=== PATIENT | male | born 1950 | race Caucasian/White ===

== ENCOUNTER 2019-09-17 14:34 | Inpatient (IN) | payer MEDICARE, OTHER, SELFPAY ==
[2019-09-17] VITALS (10 sets, daily range): BP systolic 90–136; BP diastolic 52–95; PULSE 72–90; RESP 16–23; TEMP 36.3–36.5; O2SAT 98–100
--- NOTE | 2019-09-17 14:40 | ED.GIBLEED ---
HPI - GI Bleed General Chief complaint: GI Bleed Stated complaint: GI bleed Time Seen by Provider: 09/17/19 14:39 Source: patient, family and EMS Mode of arrival: EMS Limitations: no limitations History of Present Illness HPI Narrative: 68 years old white male with history of hypertension, hyperlipidemia, patient on aspirin presents with rectal bleeding. 4-hour prior to arrival patient patient developed an not good feeling, and later abdominal cramps later felt that his abdomen is bloated, collapsed walking in the hallway at home then had a large dark maroon-colored stool. Currently patient feeling lousy denying any pain. Patient denies similar symptoms. Patient does not smoke and drinks occasionally Related Data Home Medications Medication Instructions Recorded Confirmed aspirin 81 mg tablet,delayed 81 mg PO DAILY 07/24/19 release cyanocobalamin (vitamin B-12) 1,000 mcg PO DAILY 07/24/19 1,000 mcg tablet lisinopril 20 mg tablet 20 mg PO DAILY 07/24/19 loratadine-pseudoephedrine ER 10 1 tablet PO DAILY 07/24/19 mg-240 mg tablet,extended [id number] sildenafil 100 mg tablet 100 mg PO DAILY PRN 07/24/19 Allergies Allergy/AdvReac Type Severity Reaction Status Date / Time No Known Allergies Allergy Verified 09/17/19 14:37 Review of Systems Review of Systems: Narrative: CONSTITUTIONAL: Denies fever, chills, or sweats. EYES: Denies visual changes, redness, or discharge. ENT: Denies rhinorrhea, congestion, sore throat, or otalgia. CARDIOVASCULAR: Denies chest pain, palpitations, or edema. RESPIRATORY: Denies cough or dyspnea. GASTROINTESTINAL: Denies abdominal pain, nausea, vomiting, or diarrhea. GENITOURINARY: Denies dysuria or hematuria. SKIN: Denies rash or itching. MUSCULOSKELETAL: Denies back pain, joint pain, or myalgia. NEUROLOGIC: Denies headache, numbness, or weakness. PSYCHIATRIC: Denies anxiety or depression. [facility] Past Medical History Medical History Hepatitis C antibody test negative Surgical History Surgical History H/O colonoscopy last one was 12-15-2018 Social History Social History Alcohol intake: current Exam Narrative: Exam Narrative: General appearance: Well-developed, well-nourished, ill looking Skin: Pale and diaphoretic Head: Normocephalic, nontraumatic Eyes: Clear conjunctiva ENT: Oropharynx normal, ears normal, nose normal Neck: Supple, nontender Chest and respiratory: Airway patent, no respiratory distress, no accessory muscle use Heart: Regular rate/rhythm Abdomen: Soft, nontender, no organomegaly, quiet bowel sounds Vascular: Normal peripheral pulses, normal capillary refill. 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 The differential diagnosis as below. My plan to get labs, start IV fluids, type and cross for possible blood transfusion, GI consult Differential Diagnosis Differential diagnosis: Likely Upper gastrointestinal hemorrhage, Lower gastroin
--- NOTE | 2019-09-17 14:49 | PC.NURSE ---
Pt lossed color, became clammy, and sweaty. Fluids started. BP 96/70. Second line started. EDP aware
[2019-09-17] MEDS: SODIUM CHLORIDE 0.9% IV 1,000 ML 999 ML (14:51)
[2019-09-17] MEDS: PANTOPRAZOLE SODIUM IV 40 MG VIAL IV PUSH (15:01)
[2019-09-17 15:14] LABS: Basophils Absolute Auto 0.1 K/mm3 (0.0-0.1); Basophils Percent Auto 0.7 % (0.2-1.2); Eosinophils Absolute Auto 0.2 K/mm3 (0-0.3); Eosinophils Percent Auto 1.4 % (0-4.4); Hematocrit 38.8 % (42.0-52.0); Hemoglobin 12.6 g/dL (14.0-18.0); Immature Granulocyte Percent A 0.7 % (0-0.5); Lymphocytes Absolute Auto 2.34 K/mm3 (0.9-3.2); Lymphocytes Percent Auto 16.8 % (18.3-44.2); Mean Corpuscular HGB Conc 32.5 g/dl (32-36); Mean Corpuscular Hemoglobin 29.8 pg (26-34); Mean Corpuscular Volume 91.7 fl (80-100); Mean Platelet Volume 10.8 fl (7.4-10.4); Monocytes Absolute Auto 0.6 K/mm3 (0.1-0.6); Monocytes Percent Auto 4.2 % (2.6-8.5); Neutrophils Absolute Auto 10.6 K/mm3 (1.3-6.7); Neutrophils Percent Auto 76.2 % (45.5-73.1); Platelet Count Result 398 k/mm3 (150-375); Red Blood Count 4.23 M/mm3 (4.6-6.20); Red Cell Distribution Width 13.5 % (11.5-14.5); White Blood Count 13.9 K/mm3 (4.5-10.0)
[2019-09-17 15:23] LABS: Lactic Acid Reflex 1.9 mmol/L (0.7-2.1)
[2019-09-17 15:24] LABS: Alanine Aminotransferase 15 U/L (4-50); Albumin Level 3.4 g/dL (3.5-5.1); Alkaline Phosphatase 60 U/L (38-126); Aspartate Amino Transferase 19 U/L (17-59); Bilirubin,Total 0.2 mg/dL (0.2-1.3); Blood Urea Nitrogen 32 mg/dL (9-20); Calcium 8.2 mg/dL (8.4-10.2); Carbon Dioxide 22 mmol/L (22-30); Chloride 106 mmol/L (98-107); Estimated CRCL calculation 58 ml/min; Estimated Glomerular Filt Rate 60; Glucose 155 mg/dL (75-110); Sodium 135 mmol/L (137-145)
[2019-09-17] MEDS: SODIUM CHLORIDE 0.9% IV 1,000 ML 125 ML IV CONT (17:08)
--- NOTE | 2019-09-17 17:17 | ADMGEN ---
This patient, Micheal Guadarrama, was admitted to Medical Room 247-. Patient/family oriented to hospital policies and general routines including ID bracelet, bed and alarms, visiting hours, pain management, procedures, bathroom and other care routines, personal items, smoking policy, room service/diet, and visiting hours. Valuables list has been completed. Information on how to activate the Rapid Response Team has been discussed. Patient/Family are encouraged to report perceived risks to care and to ask questions if they do not understand what they are told or what they should do.
[2019-09-17 18:57] LABS: IFOB Positive Control Positive; Immunochemical Fecal Occult Bl Positive (N)
--- NOTE | 2019-09-17 22:18 | PM.IMHP ---
H&P: HPI History of Present Illness Chief complaint: gi bleed Narrative: Micheal Guadarrama is a 68 year old male who stated that he had a colonoscopy approximately 2 years ago and that it was normal. The patient stated the 1st time that he had a bowel movement this morning he wiped and there was little bit of blood on the toilet paper roll actually is dark maroon-colored blood and he was little nervous about it but felt fine. The patient said that he felt tired so went back and took a nap. When he woke up he had some abdominal cramping and has some bloody stool at that time. Patient still felt okay after that. So there was a large amount of blood but he was not too worried about it. After the 2nd a large bloody stool which looked maroon color the patient became lightheaded and dizzy in fell on the floor his had help get up. He had no chest pain or palpitations. The called the ambulance. The patient is passing a lot of gas at this time. He has been taking an aspirin. His blood pressure is on the soft side in the emergency room. H&H was noted to be 12.6 and 38.8. His white count was 13.9 which could be reactive. Dr. aguilar has been consulted. Patient was given IV Protonix 1 time and started on IV fluids. Date of service is 09/17/2019 however after reviewing his records I did find a colonoscopy that was dated on 2018 and internal hemorrhoids were found at that time. It looks like he had some polyps as well. They were removed. Review of Systems Review of Systems: All systems reviewed & are unremarkable except as noted in HPI and below Constitutional: Constitutional: Reports as per HPI and Reports no additional constitutional complaints Eyes: Eyes: Reports as per HPI and Reports no additional eye complaints ENT: Reports system reviewed and no additional complaints, except as documented and Reports Normal hearing present Cardiovascular: Cardiovascular: Reports no additional cardiovascular complaints Respiratory: Respiratory: Reports no additional respiratory complaints and Reports no additional respiratory complaints Gastrointestinal: Gastrointestinal: Reports as per HPI and Reports no additional gastrointestinal complaints Musculoskeletal: Musculoskeletal: Reports no additional musculoskeletal complaints Integumentary/Breasts: Skin/Breast: Reports system reviewed and no additional complaints, except as docu and Reports as per HPI Neurologic: Reports system reviewed and no additional complaints, except as documented, Reports as per HPI and Reports Normal hearing present Psychiatric: Psychiatric: Reports no additional psychiatric complaints and Reports as per HPI Endocrine: Endocrine: Reports no additional endocrine complaints Hematologic/Lymphatic: Hematologic/Lymphatic: Reports no additional hematologic/lymphatic complaints Allergic/Immunologic: Allergic/Immunologic: Reports no additional allergic/immunologic complaints [facility] Past Medical History Medical History (Updated 09/17/19 @ 22:30 by Tish Jackson NP) Diverticulitis Diverticulosis History of CVA (cerebrovascular accident) Myocardial infarction Surgical History Surgical History (Updated 09/17/19 @ 22:30 by Tish Jackson NP) H/O colonoscopy last one was 12-15-2018 H/O colonoscopy with polypectomy Family History Family History (Updated 09/17/19 @ 22:27 by Tish Jackson NP) Father Lung cancer Mother Sepsis Sibling Diabetes mellitus Malignant neoplasm of prostate Social History Social History (Updated 09/17/19 @ 22:28 by Tish Jackson NP) Social History: The patient is and lives with his . They have a son and a daughter together. The patient desires to be a full code. He desires to have her as a durable power research attorney for healthcare. He retired from the postal service. The patient started smoking when is a teenager and quit about 10 years ago. No alcohol or illicit drugs. Smoking packs per day: 2
[2019-09-17 23:25] LABS: Hemoglobin 10.6 g/dL (14.0-18.0)
[2019-09-18] VITALS (8 sets, daily range): BP systolic 87–143; BP diastolic 53–83; PULSE 81–92; RESP 13–24; TEMP 36.6–36.9; O2SAT 95–99
[2019-09-18] MEDS: SODIUM CHLORIDE 0.9% IV 1,000 ML 125 ML IV CONT (01:27)
[2019-09-18 05:53] LABS: Alanine Aminotransferase 12 U/L (4-50); Albumin Level 3.1 g/dL (3.5-5.1); Alkaline Phosphatase 52 U/L (38-126); Aspartate Amino Transferase 17 U/L (17-59); Bilirubin,Total 0.2 mg/dL (0.2-1.3); Blood Urea Nitrogen 26 mg/dL (9-20); Calcium 8.2 mg/dL (8.4-10.2); Carbon Dioxide 28 mmol/L (22-30); Chloride 109 mmol/L (98-107); Estimated CRCL calculation 63 ml/min; Estimated Glomerular Filt Rate > 60; Glucose 88 mg/dL (75-110); Potassium 4.5 mmol/L (3.4-5.0); Sodium 138 mmol/L (137-145)
[2019-09-18 05:57] LABS: Basophils Absolute Auto 0.1 K/mm3 (0.0-0.1); Basophils Percent Auto 0.6 % (0.2-1.2); Eosinophils Absolute Auto 0.2 K/mm3 (0-0.3); Hematocrit 32.8 % (42.0-52.0); Hemoglobin 10.8 g/dL (14.0-18.0); Immature Granulocyte Absolute 0.04 K/mm3 (0.00-0.031); Immature Granulocyte Percent A 0.4 % (0-0.5); Lymphocytes Absolute Auto 2.31 K/mm3 (0.9-3.2); Lymphocytes Percent Auto 25.9 % (18.3-44.2); Mean Corpuscular HGB Conc 32.9 g/dl (32-36); Mean Corpuscular Hemoglobin 30.1 pg (26-34); Mean Corpuscular Volume 91.4 fl (80-100); Mean Platelet Volume 10.7 fl (7.4-10.4); Monocytes Absolute Auto 0.6 K/mm3 (0.1-0.6); Monocytes Percent Auto 6.6 % (2.6-8.5); Neutrophils Absolute Auto 5.7 K/mm3 (1.3-6.7); Neutrophils Percent Auto 64.5 % (45.5-73.1); Platelet Count Result 356 k/mm3 (150-375); Red Blood Count 3.59 M/mm3 (4.6-6.20); Red Cell Distribution Width 13.5 % (11.5-14.5); White Blood Count 8.9 K/mm3 (4.5-10.0)
--- NOTE | 2019-09-18 07:15 | WPDGICN ---
Assessment and Plan Assessment and plan (1) Acute GI bleeding: Code(s): K92.2 - Gastrointestinal hemorrhage, unspecified Status: Acute Assessment and Plan: Etiology of GI blood loss uncertain. Patient reports blackish tinge to the stool this morning. Also described as maroonish and bloody. Hemoglobin has declined from initial hemoglobin approximately 12 to hemoglobin approximately 10 this morning. Plan is to continue monitor hemoglobin we will cover patient with proton pump inhibitor. Plan to proceed with EGD today. Colonoscopy may be required subsequently if no findings. We will follow with you. (2) Obesity (BMI 30.0-34.9): Code(s): E66.9 - Obesity, unspecified Status: Acute (3) Carcinoma of prostate: Code(s): C61 - Malignant neoplasm of prostate Status: Acute (4) Essential (primary) hypertension: Code(s): I10 - Essential (primary) hypertension Status: Acute GI Consult Note Consult date/time: 09/18/19 07:15 HPI: Micheal Guadarrama is a 68 year old male seen in evaluation at the request of the emergency room. Patient reports that he has been feeling well. Yesterday began to have lower abdominal discomfort. In the afternoon began to pass maroon bloody stools. He noted some relief after continued bowel movements in after a particularly large bowel movement with blood. He states blood over the night his become somewhat red but also with blackish flex. He has never had blood in his stools previously. He does notice some low abdominal pain that improved after bowel movements. Patient reports colonoscopy 2 years ago that had showed a benign colon polyp as well as benign diverticulosis. Family history is noncontributory. Review of Systems Review of Systems: All systems reviewed & are unremarkable except as noted in HPI and below PMFSH Past Medical History Medical History Diverticulitis Diverticulosis History of CVA (cerebrovascular accident) Myocardial infarction Surgical History Surgical History H/O colonoscopy last one was 12-15-2018 H/O colonoscopy with polypectomy Family History Family History Father Lung cancer Mother Sepsis Sibling Diabetes mellitus Malignant neoplasm of prostate Social History Social History (Updated 09/17/19 @ 22:28 by Tish Jackson NP) Social History: The patient is and lives with his . They have a son and a daughter together. The patient desires to be a full code. 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 The patient started smoking when is a teenager and quit about 10 years ago. No alcohol or illicit drugs. Smoking packs per day: 2 Smoking cigarettes per day: 40.0 Years smoked: 50 Smoking pack-years: 100.00 Smoking status: Former smoker Tobacco type: cigarettes Second hand tobacco smoke exposure: Yes Alcohol intake: current Drinks per week: 2 Substance use: never Gender identity (if verbalized by the patient): Male Spiritual care concerns: No Agree to blood products: Yes Meds Home Medications and Allergies Home Medications Medication Instructions Recorded Confirmed Type aspirin 81 mg tablet,delayed 81 mg PO DAILY 07/24/19 09/17/19 History release cyanocobalamin (vitamin B-12) 1,000 mcg PO DAILY 07/24/19 09/17/19 History 1,000 mcg tablet lisinopril 20 mg tablet 20 mg PO DAILY 07/24/19 09/17/19 History loratadine-pseudoephedrine ER 10 1 tablet PO DAILY 07/24/19 09/17/19 History mg-240 mg tablet,extended [id number] atorvastatin 10 mg tablet 10 mg PO DAILY #90 tablet 09/01/19 09/17/19 Rx amlodipine 10 mg tablet 10 mg PO DAILY #30 tablet 09/07/19 09/17/19 Rx Allergies Allergy/AdvReac Type Severity Reaction Status Date / John
--- NOTE | 2019-09-18 07:22 | PC.NURSE ---
To GI Lab per [facility], IV saline locked.
--- NOTE | 2019-09-18 07:33 | WPDANESEPPF ---
Anes - Initial Pre Proc Eval Procedure: Operation Date: 09/18/19 08:30 Proposed Procedures p Esophagogastroduodenoscopy - Kristian Pulido MD Date/Time: 09/18/19 07:33 Surgeon: Emeterio Brock PA-C Pre Op Diagnosis: gi bleed Patient Data Age: 68 Gender: M Height: 5 ft 7 in Weight: 94.5 kg Last Vital Signs Temp 36.7 C 09/18/19 05:57 Pulse 81 09/18/19 05:57 Resp 16 09/18/19 05:57 BP 130/74 09/18/19 05:57 Pulse Ox 97 09/18/19 05:57 Allergies Allergy/AdvReac Type Severity Reaction Status Date / Time No Known Allergies Allergy Verified 09/17/19 14:37 Home Medications Medication Instructions Recorded Confirmed Type aspirin 81 mg tablet,delayed 81 mg PO DAILY 07/24/19 09/17/19 History release cyanocobalamin (vitamin B-12) 1,000 mcg PO DAILY 07/24/19 09/17/19 History 1,000 mcg tablet lisinopril 20 mg tablet 20 mg PO DAILY 07/24/19 09/17/19 History loratadine-pseudoephedrine ER 10 1 tablet PO DAILY 07/24/19 09/17/19 History mg-240 mg tablet,extended [id number] atorvastatin 10 mg tablet 10 mg PO DAILY #90 tablet 09/01/19 09/17/19 Rx amlodipine 10 mg tablet 10 mg PO DAILY #30 tablet 09/07/19 09/17/19 Rx Laboratory Tests 09/17/19 09/17/19 09/17/19 14:58 14:58 15:04 WBC 13.9 K/mm3 H K/mm3 (4.5-10.0) RBC 4.23 M/mm3 L M/mm3 (4.6-6.20) Hgb 12.6 g/dL L g/dL (14.0-18.0) Hct 38.8 % L % (42.0-52.0) MCV 91.7 fl fl (80-100) MCH 29.8 pg pg (26-34) MCHC 32.5 g/dl g/dl (32-36) RDW 13.5 % % (11.5-14.5) Plt Count 398 k/mm3 H k/mm3 (150-375) MPV 10.8 fl H fl (7.4-10.4) Immature Gran % (Auto) 0.7 % H % (0-0.5) Neut % (Auto) 76.2 % H % (45.5-73.1) Lymph % (Auto) 16.8 % L % (18.3-44.2) [place] % (Auto) 4.2 % % (2.6-8.5) Eos % (Auto) 1.4 % % (0-4.4) Baso % (Auto) 0.7 % % (0.2-1.2) Lymph # (Auto) 2.34 K/mm3 K/mm3 (0.9-3.2) [place] # (Auto) 0.6 K/mm3 K/mm3 (0.1-0.6) Eos # (Auto) 0.2 K/mm3 K/mm3 (0-0.3) Baso # (Auto) 0.1 K/mm3 K/mm3 (0.0-0.1) Abs Immat Gran (auto) 0.10 K/mm3 H K/mm3 (0.00-0.031) Absolute Neuts (auto) 10.6 K/mm3 H K/mm3 (1.3-6.7) Absolute Nucleated RBC 0.0 K/mm3 K/mm3 (0.0-0.012) Nucleated RBC % 0.0 % % (0.0-0.2) Sodium 135 mmol/L L mmol/L (137-145) Potassium 5.0 mmol/L mmol/L (3.4-5.0) Chloride 106 mmol/L mmol/L (98-107) Carbon Dioxide 22 mmol/L mmol/L (22-30) BUN 32 mg/dL H mg/dL (9-20) Creatinine 1.20 mg/dL mg/dL (0.7-1.3) Estim Creat Clear Calc 58 ml/min ml/min Estimated GFR 60 (59 - ) Glucose 155 mg/dL H mg/dL (75-110) Lactic Acid Calcium 8.2 mg/dL L mg/dL (8.4-10.2) Total Bilirubin 0.2 mg/dL mg/dL (0.2-1.3) AST 19 U/L U/L (17-59) ALT 15 U/L U/L (4-50) Alkaline Phosphatase 60 U/L U/L (38-126) Total Protein 6.0 g/dL L g/dL (6.3-8.2) Albumin 3.4 g/dL L g/dL (3.5-5.1) Stl Occult Blood (IFOB) Blood Type A Positive Antibody Screen Negative 09/17/19 09/17/19 09/17/19 15:04 17:37 23:15 WBC RBC Hgb 10.6 g/dL L g/dL (14.0-18.0) Hct 32.0 % L % (42.0-52.0) MCV MCH MCHC RDW Plt Count MPV Immature Gran % (Auto) Neut % (Auto) Lymph % (Auto) [place] % (Auto) Eos % (Auto) Baso % (Auto) Lymph # (Auto) [place] # (Auto) Eos # (Auto) Baso # (Auto) Abs Immat Gran (auto) Absolute Neuts (auto) Absolute Nucleated RBC
[2019-09-18] MEDS: LACTATED RINGERS 1,000 ML 150 ML IV CONT (07:42)
--- NOTE | 2019-09-18 07:45 | SUR.PREOP ---
0730 Up in patient's room, wedding ring left next to his cell phone on the bedside table. Isaias STRAUSS 1030 Called patient's via phone regarding an update. cell number received from his MareLuis Alfredo Hall RN
[2019-09-18] MEDS: BENZOCAINE (*SP) 60 ML SPRAY CAN (HURRICAINE) 1 SPRAY MUCOUS MEM (08:43)
--- NOTE | 2019-09-18 09:38 | PC.NURSE ---
Returned from GI Lab at 0930 via stretcher.
[2019-09-18] MEDS: PANTOPRAZOLE SODIUM IV 40 MG VIAL IV PUSH (09:41)
[2019-09-18 11:14] LABS: Hematocrit 34.2 % (42.0-52.0)
[2019-09-18] MEDS: PEG (High)/E-LYTE SOLN 4,000 ML BTL 4000 ML PO (11:17)
[2019-09-18] MEDS: SODIUM CHLORIDE 0.9% IV 1,000 ML 100 ML IV CONT (12:28)
--- NOTE | 2019-09-18 14:21 | PM.IMPN ---
Progress Note: A&P Assessment and Plan (1) Acute GI bleeding: Code(s): K92.2 - Gastrointestinal hemorrhage, unspecified Status: Acute Assessment and Plan: EGD performed today per Dr. Pulido; unremarkable EGD. Hgb 11.0 this morning; H&H this afternoon, then CBC tomorrow. Patient still reports blood in stools. Type and cross match obtained. Hold ASA for now Patient having prep for colonoscopy per Dr. Pulido tomorrow Monitor for continued signs of blood loss Monitor H&H Transfuse as needed Continue with Protonix. GI following and appreciate recommendations; await colonoscopy and further rec (2) Mixed hyperlipidemia: Code(s): E78.2 - Mixed hyperlipidemia Status: Acute Assessment and Plan: Continue atorvastatin once off NPO status (3) Essential (primary) hypertension: Code(s): I10 - Essential (primary) hypertension Status: Acute Assessment and Plan: BP 110s sys this morning Lisinopril and amlodipine held due to soft BP readings and NPO status Resume home BP once appropriate PRN hydralazine as needed with parameters Subjective Date/time seen: 09/18/19 14:21 Interval history: Patient is a 68 yo M with history of CVA, NM, and diverticulosis with episode of diverticulitis in the past who is here for evaluation of GI bleed. Patient tells me he is doing okay today. He is still noticing significant bright red blood in his stool in the toilet bowl. He is currently doing bowel prep for colonoscopy tomorrow. He denies any other associated symptoms such as dizziness/lightheadness, cp/palpitations. He has no other complaints this afternoon. Denies f/c/s, myalgias/arthralgias, headaches, dizziness, lightheadedness, changes in v/h, cp/palpitations, sob/cough, n/v, abd pain, distension, dysuria, hematuria, cloudy urine, calf pain/swelling. Review of Systems Review of Systems: All systems reviewed & are unremarkable except as noted in HPI and below Exam Narrative: Exam Narrative: Patient lying in semi-hill's position at time of visit Const: General: cooperative, healthy appearing, comfortable, no acute distress, well developed and alert Nutritional Appearance: well nourished Orientation/consciousness: patient oriented x3 HENMT: Head: normocephalic and atraumatic General nose exam: Normal nares present Face and sinus: face symmetric Mouth: Yes moist mucous membranes Throat: posterior oropharynx normal and uvula midline Eyes: General: appearance normal, both eyes and all related structures EOM: EOMs intact bilaterally Neck: Neck: trachea midline and supple Resp: Effort & Inspection: normal respiratory effort Auscultation: rhonchi (scattered, cleared with cough) Cardio: Rate: regular rate Rhythm: regular rhythm Heart sounds: no murmurs GI: Inspection: non-distended and obesity GI Palp: No abdominal tenderness and Yes Soft to palpation Auscultation: normal bowel sounds and normoactive bowel sounds Skin: General skin exam: normal color and no rashes or lesions noted Neuro: General: patient oriented x3, moves all extremities and no focal motor deficits Speech: normal speech Motor exam (neuro): 5/5 motor strength present throughout Extrem: Right lower extremity: no edema Left lower extremity: no edema Other: nttp b/l calves Psych: Mental Status: mental status grossly normal Affect: normal affect Objective Data Vital Signs Vital Signs: Last Vital Signs Temp 98.4 F 09/18/19 07:40 Pulse 81 09/18/19 09:10 Resp 09/18/19 09:10 BP 113/64 09/18/19 09:10 Pulse Ox 96 09/18/19 09:10 Intake/Output Intake/Output: Intake & Output 09/15/19 09/16/19 09/17/19 09/18/19 23:59 23:59 23:59 23:59 Intake Total 1000 2150 Output Total 650 Balance 1000 1500 Meds/Results Medications: Active Medications Generic Name Dose
[2019-09-18 17:31] LABS: Hematocrit 32.5 % (42.0-52.0); Hemoglobin 10.7 g/dL (14.0-18.0)
[2019-09-19] MEDS: SODIUM CHLORIDE 0.9% IV 1,000 ML 75 ML IV CONT (00:18)
[2019-09-19 04:56] LABS: Basophils Absolute Auto 0.1 K/mm3 (0.0-0.1); Basophils Percent Auto 0.9 % (0.2-1.2); Eosinophils Absolute Auto 0.3 K/mm3 (0-0.3); Eosinophils Percent Auto 3.3 % (0-4.4); Hemoglobin 10.5 g/dL (14.0-18.0); Immature Granulocyte Absolute 0.04 K/mm3 (0.00-0.031); Immature Granulocyte Percent A 0.5 % (0-0.5); Lymphocytes Absolute Auto 2.09 K/mm3 (0.9-3.2); Lymphocytes Percent Auto 26.5 % (18.3-44.2); Mean Corpuscular HGB Conc 32.8 g/dl (32-36); Mean Corpuscular Hemoglobin 29.8 pg (26-34); Mean Corpuscular Volume 90.9 fl (80-100); Monocytes Absolute Auto 0.5 K/mm3 (0.1-0.6); Monocytes Percent Auto 6.6 % (2.6-8.5); Neutrophils Absolute Auto 4.9 K/mm3 (1.3-6.7); Neutrophils Percent Auto 62.2 % (45.5-73.1); Platelet Count Result 335 k/mm3 (150-375); Red Blood Count 3.52 M/mm3 (4.6-6.20); Red Cell Distribution Width 13.5 % (11.5-14.5); White Blood Count 7.9 K/mm3 (4.5-10.0)
[2019-09-19 05:53] LABS: Blood Urea Nitrogen 13 mg/dL (9-20); Calcium 8.2 mg/dL (8.4-10.2); Carbon Dioxide 26 mmol/L (22-30); Chloride 106 mmol/L (98-107); Estimated CRCL calculation 69 ml/min; Estimated Glomerular Filt Rate > 60; Glucose 79 mg/dL (75-110); Magnesium 1.9 mg/dL (1.6-2.3); Sodium 136 mmol/L (137-145)
[2019-09-19 06:00] VITALS: BP 126/82; PULSE 80; RESP 16; TEMP 36.3; O2SAT 95
[2019-09-19] MEDS: PANTOPRAZOLE SODIUM IV 40 MG VIAL IV PUSH (08:21)
--- NOTE | 2019-09-19 10:11 | PC.NURSE ---
Patient to GI lab per cali. Report given to CARLOS A Laguerre.
--- NOTE | 2019-09-19 10:26 | WPDANESEFPP ---
Anes - Eval Final PreProcedure Day of Procedure 09/19/19 10:26 Patient weight: obese Heart: regular rate and rhythm Lungs: decreased breath sounds Airway: Mallampati scale class 1 Neurological: alert and oriented Last oral intake: >/= 8 hours ASA classification: III Emergent: no Anesthetic plan: proceed Anesthesia type and monitoring: general GIVS and standard monitoring Informed Consent: The patient's anesthetic plan and its attendant risks and benefits were discussed with the patient/family/POA. Questions were solicited and answers provided to the satisfaction of the patient/family/POA.
[2019-09-19 10:28] VITALS: BP 148/98; PULSE 86; RESP 21; O2SAT 98
[2019-09-19] MEDS: LACTATED RINGERS 1,000 ML 150 ML IV CONT (10:29)
[2019-09-19 10:54] VITALS: BP 94/52; PULSE 84; RESP 24; O2SAT 98
[2019-09-19 11:09] VITALS: BP 101/52; PULSE 85; RESP 23; O2SAT 98
[2019-09-19 11:11] VITALS: BP 122/75; PULSE 83; RESP 24; O2SAT 99
--- NOTE | 2019-09-19 11:35 | PC.NURSE ---
Patient return from GI lab.
--- NOTE | 2019-09-19 12:28 | PM.DS ---
DS: Diagnosis Admitting Diagnosis Admitting Diagnosis: Gastrointestinal hemorrhage, unspecified Discharge Diagnosis (1) Acute GI bleeding: Code(s): K92.2 - Gastrointestinal hemorrhage, unspecified Status: Acute Assessment and Plan: Presented with dark black stools and some bright red stool. Hgb 10.5/Hct 32%. Stable. EGD performed today per Dr. Pulido; unremarkable EGD. Colonoscopy preformed today showing few medium uncomplicated internal hemorrhoids that were nonbleeding and proximal to ascending colon to distal sigmoid colon with multiple medium diverticula present without bleeding. Dr. Pulido recommended the patient be on a High Fiber Diet and can be discharged today. The patients H&H are stable without anymore active bleeding, melena or hematochezia. The patient is stable for discharge. He can restart his Aspirin upon discharge. Told him to follow up with his PCP upon discharge. (2) Mixed hyperlipidemia: Code(s): E78.2 - Mixed hyperlipidemia Status: Acute Assessment and Plan: Continue atorvastatin once off NPO status (3) Essential (primary) hypertension: Code(s): I10 - Essential (primary) hypertension Status: Acute Assessment and Plan: BP 120s sys this morning Will have him check BP at home and continue his home medications. Follow up with PCP about BP readings. DS: Summary Hospital Course Reason for hospitalization: The patient is a 68 year old man with history of diverticulosis, who presented to the ER with dark maroon-colored blood and some bright red blood on his toilet paper when he wiped. He was concerned and came to the ER. Initial vitals showed, temperature 97.7?, blood pressure 112/92, heart rate 80, respiratory rate 23, oxygen saturation 99% on room air. Initial lab shows, leukocytosis 13,900, slight anemia with hemoglobin 12.6 and hematocrit 38.8%, CMP showed slight hyponatremia at 135, creatinine 1.2, BUN 32. Stool occult blood was positive. The patient Was admitted to the hospital and had a consult to GI specialist for acute GI bleed. The patient underwent an EGD on 09/18/2019 which showed no acute abnormalities. Colonoscopy was performed 09/19/2019 which showed diverticulosis of the colon and internal hemorrhoids with no acute signs of any bleeding. His H&H remained stable. The patient was discharged home to continue a high-fiber diet and recommended to continue monitoring his stool output. The patient understands and agrees the plan all questions answered. Status at Discharge Cognitive/behavioral status at discharge: Stable, improved. Time Spent with Patient Time attestation: Total time spent providing and/or coordinating discharge services: Time spent: Greater than 30 minutes Exam Narrative: Exam Narrative: General: 68-year-old man sitting up in bed eating lunch. Appears comfortable. In no acute distress. Skin: No jaundice or cyanosis. Good skin turgor. Neck: Full range of motion. Supple. Respiratory: Lungs are clear to auscultation bilaterally. No bony chest wall tenderness. Cardiovascular: The heart has a regular rate and rhythm without murmur. Lower extremities: No lower extremity edema. Distal pulses are easily palpated. No calf tenderness to palpation. Gastrointestinal: The abdomen is soft, nontender and nondistended with active bowel sounds. Psychiatric: Lucid and oriented. Memory intact. Neurologic: No focal deficits. Speech is clear. No facial drooping. DS: Data Data Completed and Pending Labs on day of discharge: Labs from last 24 hours 09/19/19 09/19/19 09/18/19 04:39 04:39 17:22 WBC 7.9 RBC 3.52 L Hgb 10.5 L 10.7 L Hct 32.0 L 32.5 L MCV 90.9 MCH 29.8 MCHC 32.8 RDW 13.5 Plt Count 335 MPV 10.0 Immature Gran %
== END 2019-09-19 13:29 | disposition home or self-care (01) | DRG 379 ==
LOC: ANHED 16:07 → ANH2MED 16:22
PROVIDERS: Internal Medicine Gastroenterology; Nurse Practitioner; Physician Assistant; Admitting Provider Internal Medicine; Emergency Provider Emergency Medicine; PCP Family Medicine; Visit Provider Physician Assistant
PROC: 0DJ08ZZ Inspection of Upper Intestinal Tract, Via Natural or Artificial Opening Endoscopic (ICD-10-PCS; CPT 43235; principal; 2019-09-18 08:30)
PROC: 0DJD8ZZ Inspection of Lower Intestinal Tract, Via Natural or Artificial Opening Endoscopic (ICD-10-PCS; CPT 45378; principal; 2019-09-19 11:00)
DX: K57.31 Diverticulosis of large intestine without perforation or abscess with bleeding (principal); Z86.010 Personal history of colon polyps; Z86.73 Personal history of transient ischemic attack (TIA), and cerebral infarction without residual deficits; E78.2 Mixed hyperlipidemia; I10 Essential (primary) hypertension; E66.9 Obesity, unspecified; Z68.32 Body mass index [BMI] 32.0-32.9, adult; K57.30 Diverticulosis of large intestine without perforation or abscess without bleeding; Z87.891 Personal history of nicotine dependence; K64.8 Other hemorrhoids
CPT/HCPCS: 36415; 80048; 80053; 82274; 83605; 83735; 85014; 85018; 85025; 86850; 86900; 86901; 96361; 96374; 99285; A9270; C9113; J2704; J7030; J7120

== ENCOUNTER 2023-12-13 13:43 | Outpatient (CLI) | payer MEDICARE, SELFPAY | END 2023-12-13 13:44 | disposition home or self-care (01) | LOC: ANHAUDASC 13:44 | PROVIDERS: PCP Family Medicine; Visit Provider Otolaryngology | DX: H90.3 Sensorineural hearing loss, bilateral (principal) | CPT/HCPCS: 92557; 92567 ==

== ENCOUNTER 2024-06-28 08:12 | Outpatient (CLI) | payer MEDICARE, SELFPAY ==
[2024-06-28 20:44] LABS: LDL Cholesterol Direct 54 mg/dL
[2024-06-28 21:02] LABS: Alanine Aminotransferase 19 U/L (6-50); Albumin Level 4.1 g/dL (3.5-5.1); Alkaline Phosphatase 77 U/L (38-126); Anion Gap 10 mmol/L (4-12); Aspartate Amino Transferase 44 U/L (17-59); Bilirubin,Total 0.7 mg/dL (0.2-1.3); Blood Urea Nitrogen 17 mg/dL (9-20); Calcium 8.7 mg/dL (8.4-10.2); Carbon Dioxide 27 mmol/L (22-30); Chloride 104 mmol/L (98-107); Cholesterol 122 mg/dL (0-200); Estimated Glomerular Filt Rate > 60; Glucose 60 mg/dL (65-110); HDL Direct 46 mg/dL; Potassium 4.6 mmol/L (3.4-5.0); Sodium 141 mmol/L (137-145); Triglycerides 74 mg/dL (<150)
[2024-06-28 21:18] LABS: Hemoglobin A1C 5.9 % (<5.7)
--- OUTSIDE RECORDS SUMMARY | 2024-06-29 21:39 | XMS_ITS | Clinical Summary ---
Author Organization [facility] [place] [address] Address [address] [place] [address] Care Team Providers Care Functional Tester Typewriters Name Role Phone Alea Clark DO Primary Care Provider +1- [phone] Allergies No known active allergies Medications aspirin 81 mg enteric coated tablet Take 81 mg by mouth daily Active amLODIPine (NORVASC) 10 mg tablet Take 10 mg by mouth daily 9 Active atorvastatin (LIPITOR) 10 mg tablet Take 10 mg by mouth daily 9 Active sildenafil (VIAGRA) 100 mg tablet Take 100 mg by mouth as needed for erectile dysfunction Active loratadine (CLARITIN) 10 mg tablet Take 10 mg by mouth daily Active lisinopriL (PRINIVIL,ZESTR [place]) 20 mg tablet Take 1 tablet (20 mg total) by mouth daily Patient needs to be seen by Dr. Fonseca prior to any more refills. 30 tablet 0 Active Active Problems Problem Noted Date Diagnosed Date History of syncope 12/05/2018 Essential hypertension 12/05/2018 Dyslipidemia 12/05/2018 Medical History Medical History Date Comments Personal history of other di seases of the circulatory system History of hypertension - (A dded by TW Conv) Personal history of other en docrine, nutritional and metabolic disease History of high chol esterol - (Added by TW Conv) Hypertension Family History Medical History Relation Name Comments No Known Problems Brother Cancer Father Family history of malignant neoplasm - (Added by TW Conv) infection Mother Relation Name Status Comments Brother Alive Father (Age 75) Mother (Age 90) Social History Tobacco Use Types Packs/Day Years Used Date Smoking Tobacco: Never Smokeless Tobacco: Never Tobacco Cessation:Counseling Given: Yes Alcohol Use Standard Drinks/Week Comments Not Currently 0 (1 standard drink = 0.6 oz pur e alcohol) Personal Safety Answer Date Recorded Getting School Help Needed Not on file 08/21 Sex and Gender Information Value Date Recorded Sex Assigned at Not on file 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 Gender Identity Not on file Sexual Orientation Not on file Obstetrics History Last Filed Vital Signs Vital Sign Reading Time Taken Comments Blood Pressure 118/60 12/05/2018 1:55 PM CDT Pulse 73 12/05/2018 1:55 PM CDT Temperature - - Respiratory Rate - - Oxygen Saturation 98% 12/05/2018 1:55 PM CDT Inhaled Oxygen Concentration - - Weight 94.1 kg (207 lb 8 oz) 12/05/2018 1:55 PM CDT Height 167.6 cm (5' 6 ) 12/05/2018 1:55 PM CDT Body Mass Index 33.49 12/05/2018 1:55 PM CDT Plan of Treatment Health Maintenance Due Date Last Done Comments Colon Cancer Screening-Colonoscopy 1950 Depression Screening 1950 Fall Risk Assessment 1950 Hepatitis C Screening 1950 Hepatitis B Screening 12/22/1969 Zoster Vaccine (1 of 2) 12/22/2001 Abdominal Aortic Aneurysm (A AA) Screen 12/22/2016 Well Visit 65+ 12/22/2016 Covid-19 Vaccine (6 2023-2 5 season) 2024 02/11/2022, 09/14/2021, 04/07/2021, Additional history exists Influenza Vaccine (#1) 2024 , 02/25/2021, 02/17/2020, Additional history exists DTaP/Tdap/Td Vaccine (2 - Td or Tdap) 03/13/2029 03/13/2019 Pneumococcal vaccine 65+ Completed 03/13/2019, 06/08 Insurance MEDICARE COMMERCIAL GENERIC MEDICARE COMMERCIAL GENERIC Care Teams Functional Tester Typewriters Relationship Specialty Start Date End Date Alea Clark DO PCP - General Family Medicine 04/20/22
--- OUTSIDE RECORDS SUMMARY | 2024-06-29 21:39 | XMS_ITS | Referral Summary ---
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
== END 2024-06-28 08:13 | disposition home or self-care (01) ==
LOC: ANHGOSHLAB 08:13
PROVIDERS: PCP Family Medicine; Visit Provider Nurse Practitioner
DX: E78.2 Mixed hyperlipidemia (principal); R73.03 Prediabetes; Z12.11 Encounter for screening for malignant neoplasm of colon
CPT/HCPCS: 36415; 80053; 80061; 83036

== ENCOUNTER 2024-10-09 08:03 | Outpatient (CLI) | payer MEDICARE, SELFPAY ==
--- OUTSIDE RECORDS SUMMARY | 2024-10-09 08:11 | XMS_ITS | Clinical Summary ---
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
--- OUTSIDE RECORDS SUMMARY | 2024-10-09 08:11 | XMS_ITS | Referral Summary ---
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
[2024-10-09 12:52] LABS: Alanine Aminotransferase 20 U/L (6-50); Albumin Level 4.3 g/dL (3.5-5.1); Alkaline Phosphatase 75 U/L (38-126); Anion Gap 9 mmol/L (4-12); Aspartate Amino Transferase 93 U/L (17-59); Bilirubin,Total 0.7 mg/dL (0.2-1.3); Blood Urea Nitrogen 18 mg/dL (9-20); Calcium 8.9 mg/dL (8.4-10.2); Carbon Dioxide 28 mmol/L (22-30); Chloride 102 mmol/L (98-107); Cholesterol 135 mg/dL (0-200); Estimated Glomerular Filt Rate > 60; Glucose 78 mg/dL (65-110); HDL Direct 50 mg/dL; Potassium 4.3 mmol/L (3.4-5.0); Sodium 139 mmol/L (137-145); Triglycerides 87 mg/dL (<150)
[2024-10-09 13:02] LABS: LDL Cholesterol Direct 51 mg/dL
[2024-10-09 14:08] LABS: Hemoglobin A1C 5.7 % (<5.7)
== END 2024-10-09 08:04 | disposition home or self-care (01) ==
LOC: ANHGOSHLAB 08:04
PROVIDERS: PCP Family Medicine; Visit Provider Nurse Practitioner
DX: E78.2 Mixed hyperlipidemia (principal); R73.03 Prediabetes
CPT/HCPCS: 36415; 80053; 80061; 83036

== ENCOUNTER 2024-11-10 10:52 | Emergency (ER) | payer MEDICARE, SELFPAY ==
--- NOTE | 2024-11-10 10:56 | ED_ITS ---
HPI - Ear Problem General Chief complaint: Ear Stated complaint: SINUS/EARACHE Time Seen by Provider: 11/10/24 10:55 Source: patient Mode of arrival: ambulatory Limitations: no limitations History of Present Illness HPI Narrative: Patient is a 73-year-old male presents with right ear and right maxillary sinus pain started 4 days ago. Was outside at a graduation and doing yard work that weekend. Has a history of allergies takes Claritin daily. Called a telehealth on Wednesday and was prescribed some ear drops neomycin polymyxin. He has also been taking Sudafed from behind the counter which gives him relief but it also gives him a headache. Denies cough sore throat, chest congestion, fever, or chills. Reported he took 3 doses of doxy from a previous infection. Denies any ear drainage. Reports increased pain at night and interferes with sleep. MD Complaint: ear pain Related Data Home Medications ?Medication ?Instructions ?Recorded ?Confirmed ?Last Taken ?Type cetirizine 10 mg capsule (Zyrtec) 10 mg PO DAILY PRN allergy symptoms 10/22/22 11/10/24 Unknown History finasteride 5 mg tablet 5 mg PO DAILY 02/18/23 11/10/24 Unknown History Allergies Allergy/AdvReac Type Severity Reaction Status Date / Time No Known Allergies Allergy Verified 11/10/24 11:02 Review of Systems Review of Systems: All systems reviewed & are unremarkable except as noted in HPI and below Constitutional: Constitutional: Denies body ache(s), Denies chills, Denies fever(s), Denies headache(s) and Denies malaise Eyes: Eyes: Denies blurry vision, Denies eye discharge and Denies irritation ENT: Reports otalgia, Denies headache(s), Denies nasal congestion, Denies nasal discharge, Reports sinus pain, Reports sinus pressure and Denies sore throat Cardiovascular: Cardiovascular: Denies chest pain, Denies edema, Denies palpitations and Denies dyspnea on exertion Respiratory: Respiratory: Denies cough and Denies dyspnea on exertion Gastrointestinal: Gastrointestinal: Denies abdominal pain, Denies diarrhea, Denies nausea and Denies vomiting Musculoskeletal: Musculoskeletal: Denies back pain, Denies arthralgias and Denies muscle weakness Integumentary/Breasts: Skin/Breast: Denies pruritus and Denies rash Neurologic: Denies headache(s) Psychiatric: Psychiatric: Reports no additional psychiatric complaints Endocrine: Endocrine: Denies palpitations PMFSH Past Medical History Medical History Hepatitis C antibody test negative (10/05/17) Diverticulosis (~2019) Diverticulitis Surgical History Surgical History H/O colonoscopy with polypectomy H/O colonoscopy last one was 12-15-2018 Family History Family History Father Lung cancer Mother Sepsis Sibling Diabetes mellitus Malignant neoplasm of prostate Social History Social History Social History: The patient is and lives with his . They have a son and a daughter together. The patient desires to be a full code. He desires to have her as a durable power civil litigation attorney for healthcare. He retired from the [employer] service. The patient started smoking when is a teenager and quit about 10 years ago. No alcohol or illicit drugs. Smoking packs per day: 2 Smoking cigarettes per day: 40.0 Years smoked: 50 Smoking pack-years: 100.00 Smoking status: Former smoker Tobacco type: cigarettes Second hand tobacco smoke exposure: Yes Alcohol intake: current Drinks per week: 2 Substance use: never Lack of Transportation: No Lack of Food: Never True Current Housing: I Have Housing Concerned About Future Housing: No Difficulty Paying Gas/Electric Bills: No Difficulty Paying for Meds: No Currently Unemployed: No Education: High School Diploma/GED Difficulty w/ Childcare or Family Care: No Gender identity (if verbalized by the patient): Male Spiritual care concerns: No Agree to blood products: Yes Comments At time of signature, agree with nursing past medical, surgical, social and family history. There is no relevant family history pertinent to the presenting complaint? Exam Const: General: cooperative, healthy appearing, no acute distress and well nourished Nutritional Appearance: well nourished Orientation/consciousness: patient oriented x3 Limitations: no limitations HENMT: Head: normal to inspection, normocephalic and atraumatic Ears: hearing grossly normal bilaterally, EAC's normal, no periauricular adenopathy and TM abnormal Face/Nose/Sinus: Normal external nose present, Normal nares present, Normal nasal mucous membranes and turbinates present, No nasal discharge present, normal facial exam and Facial tenderness on exam of face and sinuses Face and sinus: normal facial exam Mouth: Yes Normal oral and palatal mucosa present, Yes lip normal, Yes tongue normal and Yes moist mucous membranes Throat: posterior oropharynx normal, tonsils normal and uvula midline Eyes: General: appearance normal, both eyes and all related structures Alignment and Position: alignment normal and position normal Eyelids: eyelids normal Pupils: Equal, round and reactive pupils present EOM: EOMs intact bilaterally Neck: Neck: normal visual inspection, full ROM, no lymphadenopathy and supple Chest: Chest palpation & inspection: normal inspection of the chest Resp: Effort & Inspection: normal respiratory effort and able to speak in complete sentences Auscultation: clear to auscultation bilaterally, no crackles, no rales, no rhonchi and no wheezes Cardio: Rate: regular rate Rhythm: regular rhythm Heart sounds: S1 normal heart sound present and S2 normal heart sound present Skin: General skin exam: normal color and no rashes or lesions noted Neuro: General: patient oriented x3 and moves all extremities Cranial nerves: Yes Equal, round and reactive pupils present Cognition (Neuro): normal cognition Speech: normal speech Gait exam (Neuro): Normal gait present Extrem: General: normal to inspection and full ROM Psych: Appearance: grossly normal and well kempt Mental Status: mental s tatus grossly normal Speech and movement: Normal speech and movement present Course Course Emergency Course: Patient is aware of diagnosis, understands and agrees to treatment plan.? Anticipatory guidance given.? Patient agrees to follow-up as directed and is aware of reasons to seek care at the emergency department.? Portions of this record may have been created with voice recognition software? Level of Care: Express Care Visit Vital Signs Vital signs: Reviewed Medical Decision Making MDM Narrative Medical decision making narrative: Discussed not taking the Sudafed [id number] due to his history of high blood pressure and the risks associated with it. Recommend taking Coricidin cold and cough to help with decongestant; safer on his heart. Discussed continuing Claritin and adding on Flonase to help with the inflammation and fluid accumulation. Recommended taking Tylenol with pain per instructions on the bottle. Pt well hydrated appearing, in no respiratory distress, hemodynamically stable. Recommend supportive care. The patient is stable at time of discharge the clinical impression was discussed and the patient was given the opportunity to ask questions, which were addressed as completely as possible given the information available at present. Anticipatory guidance and return to care precautions were discussed and the importance of primary care follow-up was stressed and encouraged. The patient voiced understanding of the plan, indications to return, and the need for follow-up. Exam findings show no acute concerns or changes Patient is appropriate for outpatient treatment and follow-up. Differential diagnosis considered: Sorenson virus, strep pharyngitis, allergic rhinitis, upper respiratory tract infection, sinusitis, rhinosinusitis, nasopharyngitis. viral pharyngitis, otitis media, otitis externa, otitis effusion, foreign body, cerumen impaction, viral syndrome, and influenza.? Medical Records Medical records reviewed: Yes I reviewed the external patient's medical records. Discharge Plan Discharge Clinical Impression: Sinusitis Qualifiers: Sinusitis location: maxillary Chronicity: acute Recurrence: non-recurrent Qualified Code(s): J01.00 - Acute maxillary sinusitis, unspecified Patient Disposition: Home Condition: Stable Instructions: Sinusitis (ED) Additional Instructions: Symptomatic treatment of a sinus infection aims to relieve symptoms. These treatments do not shorten the duration of illness. Nonprescription pain medications, such as acetaminophen (eg, Tylenol) or ibuprofen (eg, Motrin, Advil), are recommended for pain. Flushing the nose and sinuses with a saline solution several times per day has been proven to decrease pain associated with congestion and shorten the duration of symptoms. Nasal steroids (such as Flonase, 2 sprays in each nostril daily) can help to reduce swelling inside the nose, usually within two to three days. These drugs have few side effects and relieve symptoms in most people. Oral decongestants (pseudoephedrine and phenylephrine) may be helpful if you have associated symptoms of ear pain or fullness. Nasal decongestant sprays, including oxymetazoline (Afrin) and phenylephrine (Celestino-Synephrine), can be used to temporarily treat congestion. However, these sprays should not be used for more than two to three days due to the risk of rebound congestion (when the nose becomes congested constantly unless the me dication is used repeatedly), possible addiction, and long-term consequences of frequent use, including persistent nasal dryness and crusting, which is very difficult to treat once it has developed. Medications to thin secretions (such as guaifenesin) may help to clear mucus. Please follow-up with your primary care doctor in the next 1-2 days. If you cannot follow-up with your primary care doctor please go to the ED for any urgent issues. If you have any worsening of symptoms or any other concerns please go to the ED immediately. Your blood pressure was elevated above 120/80 today at Urgent Care. This puts you above the threshold for follow up visit with a primary care provider. High blood pressure does not usually cause any symptoms, however it may lead to kidney failure, stroke, heart disease just to name a few if untreated . Many people are anxious when seeing a provider or nurse. As a result, you are not diagnosed with hypertension at this time unless your blood pressure is pe rsistently high at two office visits at least one week apart. Some things that can help lower blood pressure are lifestyle modifications, such as light exercise, decreased salt in diet, and weight loss. It is important to follow up with a PCP about this within 1 week. Patient Language: Algerian Prescriptions: New fluticasone propionate [Flonase Allergy Relief] 50 mcg/actuation spray,suspension 1 spray intranasal DAILY Qty: 16 0RF Rx Instructions: administer into each nostril amoxicillin-pot clavulanate 875-125 mg tablet 1 tablet PO Q12H 10 Days Qty: 20 0RF No Action Zyrtec 10 mg capsule 10 mg PO DAILY PRN (Reason: allergy symptoms) finasteride 5 mg tablet 5 mg PO DAILY lisinopril 20 mg tablet See Rx Instructions .ROUTE .COMPLEX Qty: 90 1RF Dose Instruction: TAKE 1 TABLET BY MOUTH EVERY DAY Rx Instructions: TAKE 1 TABLET BY MOUTH EVERY DAY amlodipine 10 mg tablet See Rx Instructions .ROUTE .COMPLEX Qty: 90 1RF Dose Instruction: TAKE 1 TABLET BY MOUTH EVERY DAY Rx Instructions: TAKE 1 TABLET BY MOUTH EVERY DAY atorvastatin 10 mg tablet See Rx Instructions .ROUTE .COMPLEX Qty: 90 1RF Dose Instruction: TAKE 1 TABLET BY MOUTH EVERY DAY Rx Instructions: TAKE 1 TABLET BY MOUTH EVERY DAY famotidine 20 mg tablet See Rx Instructions .ROUTE .COMPLEX Qty: 90 1RF Dose Instruction: TAKE 1 TABLET BY MOUTH DAILY Rx Instructions: TAKE 1 TABLET BY MOUTH DAILY Follow-up/Referrals: Alea Clark DO [Primary Care Provider] - 3 Days Time of Disposition: 11:47
[2024-11-10 11:04] VITALS: BP 162/79; PULSE 97; RESP 16; TEMP 36.8; O2SAT 98
== END 2024-11-10 11:52 | disposition home or self-care (01) ==
PROVIDERS: Emergency Provider Nurse Practitioner Family; PCP Family Medicine
DX: J01.00 Acute maxillary sinusitis, unspecified (principal); Z87.891 Personal history of nicotine dependence
CPT/HCPCS: 99213; G0463

== ENCOUNTER 2025-04-16 08:04 | Outpatient (CLI) | payer MEDICARE, SELFPAY ==
--- OUTSIDE RECORDS SUMMARY | 2025-04-16 08:08 | XMS_ITS | Clinical Summary ---
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 Gender Identity Not on file Sexual [...] 1:55 PM CDT Height 167.6 cm (5' 6) 12/05/2018 1:55 PM CDT Body Mass Index 33.49 12/05/2018 1:55 PM CDT Plan of Treatment Health Maintenance Due Date Last Done Comments Colon Cancer Screening-Colonoscopy 1950 Depression Screening 1950 Fall Risk Assessment 1950 Hepatitis C Screening 1950 Hepatitis B Screening 12/22/1969 Zoster Vaccine (1 of 2) 12/22/2001 Abdominal Aortic Aneurysm (A AA) Screen 12/22/2016 Well Visit 65+ 12/22/2016 Covid-19 Vaccine (6 2024-2 6 season) 2025 02/11/2022, 09/14/2021, 04/07/2021, Additional history exists Influenza Vaccine (#1) 2025 , 02/25/2021, 02/17/2020, Additional history exists DTaP/Tdap/Td Vaccine (2 - Td or Tdap) 03/13/2029 03/13/2019 Pneumococcal vaccine 65+ Completed 03/13/2019, 06/08 Insurance MEDICARE COMMERCIAL GENERIC MEDICARE COMMERCIAL GENERIC Care Teams Labview Programmer Relationship Specialty Start Date End Date Alea Clark DO PCP - General Family Medicine 04/20/22
[2025-04-16 12:54] LABS: Hematocrit 49.6 % (42.0-52.0); Hemoglobin 16.2 g/dL (14.0-18.0); Mean Corpuscular HGB Conc 32.7 g/dl (32-36); Mean Corpuscular Hemoglobin 30.2 pg (26-34); Mean Corpuscular Volume 92.5 fl (80-100); Platelet Count Result 375 k/mm3 (150-375); Red Blood Count 5.36 M/mm3 (4.6-6.20); White Blood Count 7.5 K/mm3 (4.5-10.0)
[2025-04-16 13:16] LABS: Alanine Aminotransferase 23 U/L (6-50); Albumin Level 4.4 g/dL (3.5-5.1); Alkaline Phosphatase 74 U/L (38-126); Anion Gap 7 mmol/L (4-12); Aspartate Amino Transferase 40 U/L (17-59); Bilirubin,Total 0.5 mg/dL (0.2-1.3); Blood Urea Nitrogen 16 mg/dL (9-20); Calcium 9.0 mg/dL (8.4-10.2); Carbon Dioxide 28 mmol/L (22-30); Chloride 102 mmol/L (98-107); Cholesterol 133 mg/dL (0-200); Estimated Glomerular Filt Rate > 60; Glucose 76 mg/dL (65-110); HDL Direct 51 mg/dL; Potassium 4.0 mmol/L (3.4-5.0); Sodium 137 mmol/L (137-145); Total Protein 7.6 g/dL (6.3-8.2); Triglycerides 85 mg/dL (<150)
[2025-04-16 13:49] LABS: Hemoglobin A1C 5.8 % (<5.7)
[2025-04-16 13:54] LABS: Prostate Specific Antigen 3.2 ng/mL (< OR = 4.0); Thyroid Stimulating Hormone 2.730 uIU/mL (0.465-4.680)
== END 2025-04-16 08:05 | disposition home or self-care (01) ==
LOC: ANHGOSHLAB 08:05
PROVIDERS: PCP Family Medicine; Visit Provider Nurse Practitioner
DX: E03.9 Hypothyroidism, unspecified (principal); Z12.5 Encounter for screening for malignant neoplasm of prostate; I10 Essential (primary) hypertension; R73.03 Prediabetes; E78.2 Mixed hyperlipidemia
CPT/HCPCS: 36415; 80053; 80061; 83036; 84153; 84443; 85027; G0103

== ENCOUNTER 2025-05-12 09:03 | Emergency (ER) | payer MEDICARE, SELFPAY ==
--- NOTE | 2025-05-12 09:04 | ED.EYEPROB ---
HPI - Eye Problem General Chief complaint: Eye Problems Stated complaint: L Eye Pain Time Seen by Provider: 05/12/25 09:04 Source: patient Mode of arrival: ambulatory Limitations: no limitations History of Present Illness HPI Narrative: Patient is a 74-year-old male that presents with left eye redness, irritation. Patient think he poked eye in his sleep and now has eye redness. denies any vision changes, drainage, pain. Related Data Home Medications ?Medication ?Instructions ?Recorded ?Confirmed ?Last Taken ?Type cetirizine 10 mg capsule (Zyrtec) 10 mg PO DAILY PRN allergy symptoms 10/22/22 04/20/25 Unknown History finasteride 5 mg tablet 5 mg PO DAILY 02/18/23 04/20/25 Unknown History sildenafil 100 mg tablet mg PO 04/20/25 04/20/25 Unknown History Allergies Allergy/AdvReac Type Severity Reaction Status Date / Time No Known Allergies Allergy Verified 05/12/25 09:12 Review of Systems Review of Systems: All systems reviewed & are unremarkable except as noted in HPI and below Constitutional: Constitutional: Denies body ache(s), Denies fever(s), Denies headache(s), Denies malaise and Denies weakness Eyes: Eyes: Denies blurry vision, Denies eye discharge, Reports irritation, Denies itchy eyes, Denies loss of vision and Denies eye pain ENT: Denies otalgia, Denies headache(s), Denies nasal discharge, Denies sinus pain and Denies sore throat Cardiovascular: Cardiovascular: Denies chest pain, Denies irregular heart rhythm and Denies dyspnea Respiratory: Respiratory: Denies dyspnea Gastrointestinal: Gastrointestinal: Denies abdominal pain, Denies diarrhea, Denies nausea and Denies vomiting Musculoskeletal: Musculoskeletal: Denies back pain, Denies myalgias and Denies arthralgias Integumentary/Breasts: Skin/Breast: Denies pruritus and Denies rash Neurologic: Denies headache(s), Denies loss of vision and Denies weakness Psychiatric: Psychiatric: Reports no additional psychiatric complaints Allergic/Immunologic: Allergic/Immunologic: Reports itchy eyes PMFSH Past Medical History Medical History Hepatitis C antibody test negative (10/05/17) Diverticulosis (~2019) Diverticulitis Surgical History Surgical History H/O colonoscopy with polypectomy H/O colonoscopy last one was 12-15-2018 Family History Family History Father Lung cancer Mother Sepsis Sibling Diabetes mellitus Malignant neoplasm of prostate Social History Social History Social History: The patient is and lives with his . They have a son and a daughter together. The patient desires to be a full code. He desires to have her as a durable power divorce attorney for healthcare. He retired from the postal service. The patient started smoking when is a teenager and quit about 10 years ago. No alcohol or illicit drugs. Smoking packs per day: 2 Smoking cigarettes per day: 40.0 Years smoked: 50 Smoking pack-years: 100.00 Smoking status: Former smoker Tobacco type: cigarettes Second hand tobacco smoke exposure: Yes Alcohol intake: current Drinks per week: 2 Substance use: never Lack of Transportation: No Lack of Food: Never True Current Housing: I Have Housing Concerned About Future Housing: No Difficulty Paying Gas/Electric Bills: No Difficulty Paying for Meds: No Currently Unemployed: No Education: High School Diploma/GED Difficulty w/ Childcare or Family Care: No Gender identity (if verbalized by the patient): Male Spiritual care concerns: No Agree to blood products: Yes Comments At time of signature, agree with nursing past medical, surgical, social and family history. There is no relevant family history pertinent to the presenting complaint. Exam Const: General: cooperative, healthy appearing, comfortable, no acute distress and well nourished Nutritional Appearance: well nourished Orientation/consciousness: patient oriented x3 Limitations: no limitations HENMT: Head: normal to inspection, normocephalic and atraumatic Ears: external ears normal Face/Nose/Sinus: Normal external nose present, normal facial exam and face symmetric Face and sinus: normal facial exam and face symmetric Mouth: Yes lip normal Eyes: General: appearance normal, both eyes and all related structures Visual Ernandez: normal visual ernandez by confrontation Alignment and Position: alignment normal and position normal Periorbital: periorbital findings normal Eyelids: eyelids normal Conjunctivae: conjunctivae normal Sclera: scleral abnormality left hemorrhage; without scleral tenderness Pupils: Equal, round and reactive pupils present EOM: EOMs intact bilaterally Direct Ophthalmoscopy: no photophobia Other: No hyphema, no foreign body under the lids. Neck: Neck: normal visual inspection, full ROM, no lymphadenopathy and no meningeal signs Chest: Chest palpation & inspection: normal inspection of the chest Resp: Effort & Inspection: normal respiratory effort and able to speak in complete sentences Auscultation: clear to auscultation bilaterally Cardio: Rate: regular rate Rhythm: regular rhythm Heart sounds: S1 normal heart sound present and S2 normal heart sound present GI: Inspection: normal to inspection Skin: General skin exam: normal color and no rashes or lesions noted Neuro: General: patient oriented x3, moves all extremities and no meningeal signs Cranial nerves: Yes Equal, round and reactive pupils present Speech: normal speech Gait exam (Neuro): Normal gait present Extrem: General: normal to inspection, full ROM and no edema Psych: Appearance: grossly normal and well kempt Mental Status: mental status grossly normal Speech and movement: Normal speech and movement present Affect: normal affect Attitude: cooperative Thought process: Normal thought process present Course Course Emergency Course: Patient is aware of diagnosis, understands and agrees to treatment plan. Anticipatory guidance given. Patient agrees to follow-up as directed and is aware of reasons to seek care at the emergency department. Portions of this record may have been created with voice recognition software Level of Care: Express Care Visit Vital Signs Vital signs: Vital Signs Temperature 36.5 C 05/12/25 09:12 Pulse Rate 80 05/12/25 09:12 Respiratory Rate 16 05/12/25 09:12 Blood Pressure 121/81 05/12/25 09:12 Pulse Oximetry 98 05/12/25 09:12 Temperature 36.5 C 05/12/25 09:12 Pulse Rate 80 05/12/25 09:12 Respiratory Rate 16 05/12/25 09:12 Blood Pressure 121/81 05/12/25 09:12 Pulse Oximetry 98 05/12/25 09:12 [facility] Narrative Medical decision making narrative: patient has subconjunctival hemorrhage from poking with self with finger. Will give antibiotic drops as a precaution. Instructed patient to go to [place] or [facility] ED if he starts having vision changes. Pt well hydrated appearing, in no respiratory distress, hemodynamically stable. Recommend supportive care. The patient is stable at time of discharge the clinical impression was discussed and the patient was given the opportunity to ask questions, which were addressed as completely as possible given the information available at present. Anticipatory guidance and return to care precautions were discussed and the importance of primary care follow-up was stressed and encouraged. The patient voiced understanding of the plan, indications to return, and the need for follow-up. Exam findings show no acute concerns or changes Patient is appropriate for outpatient treatment and follow-up. Differential Diagnosis Differential Diagnosis: Differential diagnostic considerations for eye problems include corneal abrasion, conjunctivitis, acute iritis, hyphemia, periorbital cellulitis, subconjunctival hemorrhage, glaucoma, corneal ulcer, ruptured globe, foreign body in eye. Medical Records I have reviewed the following patient records and this information was taken into consideration when formulating the assessment and plan.: previous clinic visits Discharge Plan Discharge Clinical Impression: Subconjunctival hemorrhage, traumatic Qualifiers: Laterality: left Qualified Code(s): H11.32 - Conjunctival hemorrhage, left eye Patient Disposition: Home Condition: Stable Instructions: Eye Pain (ED) Additional Instructions: Eye drops as prescribed. -Do this for 5-7 days -Cold compresses to the affected eye for comfort -Alternate or take Tylenol or ibuprofen as directed in the bottle for pain -Practice good handwashing and hygiene to prevent spread of infection Follow-up with PCP or [facility] if condition is not improving in 2-3days. Go to the emergency room if you have pain behind your eye, pressure behind her eye, difficulty seeing, or other severe symptoms Patient Language: Guamanian Prescriptions: New ofloxacin 0.3 % drops See Rx Instructions .ROUTE .COMPLEX Qty: 10 0RF Rx Instructions: put 1-2 drps into left eye every 2-4 h x 2 days, then 1-2 drps 4 times/day days 3-7 No Action fluticasone propionate [Flonase Allergy Relief] 50 mcg/actuation spray,suspension 1 spray intranasal DAILY Qty: 16 0RF Rx Instructions: administer into each nostril Zyrtec 10 mg capsule 10 mg PO DAILY PRN (Reason: allergy symptoms) sildenafil 100 mg tablet PO finasteride 5 mg tablet 5 mg PO DAILY atorvastatin 10 mg tablet See Rx Instructions .ROUTE .COMPLEX Qty: 90 1RF Dose Instruction: TAKE 1 TABLET BY MOUTH EVERY DAY Rx Instructions: TAKE 1 TABLET BY MOUTH EVERY DAY amlodipine 10 mg tablet See Rx Instructions .ROUTE .COMPLEX Qty: 90 1RF Dose Instruction: TAKE 1 TABLET BY MOUTH EVERY DAY Rx Instructions: TAKE 1 TABLET BY MOUTH EVERY DAY famotidine 20 mg tablet See Rx Instructions .ROUTE .COMPLEX Qty: 90 1RF Dose Instruction: TAKE 1 TABLET BY MOUTH DAILY Rx Instructions: TAKE 1 TABLET BY MOUTH DAILY lisinopril 20 mg tablet See Rx Instructions .ROUTE .COMPLEX Qty: 90 1RF Dose Instruction: TAKE 1 TABLET BY MOUTH EVERY DAY Rx Instructions: TAKE 1 TABLET BY MOUTH EVERY DAY Follow-up/Referrals: Alea Clark DO [Primary Care Provider, Family Practice] - 3 Days Time of Disposition: 09:51
[2025-05-12 09:12] VITALS: BP 121/81; PULSE 80; RESP 16; TEMP 36.5; O2SAT 98
== END 2025-05-12 09:54 | disposition home or self-care (01) ==
PROVIDERS: Emergency Provider Nurse Practitioner Family; PCP Family Medicine
DX: H11.32 Conjunctival hemorrhage, left eye (principal); Z87.891 Personal history of nicotine dependence
CPT/HCPCS: 99213; G0463